=== PATIENT | male | born 1945 | race Caucasian/White ===

== ENCOUNTER 2016-06-17 18:02 | Outpatient (CLI) | payer MEDICARE ==
[2016-06-17 18:31] LABS: Hemoglobin A1c 9.6 % (4.0-6.0)
== END 2016-06-17 18:03 | disposition home or self-care (01) ==
LOC: NAV LAB 18:02
PROVIDERS: ATTEND Family Medicine
DX: E11.65 Type 2 diabetes mellitus with hyperglycemia (principal)
CPT/HCPCS: 36415; 83036

== ENCOUNTER 2017-02-13 16:36 | Outpatient (CLI) | payer MEDICARE ==
--- NOTE | 2017-02-13 17:22 | RAD ---
LUMBAR SPINE THREE VIEWS: HISTORY: Intermittent numbness. COMPARISON: None. FINDINGS: There is an enlarged L5 transverse process with anomalous articulation with the sacral spine. There is anterolisthesis of L4 over L5, approximately 4 mm. There is retrolisthesis of L3 over L4, approximately 2 mm. No acute fracture. IMPRESSION: 1. 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 2. A 4 mm L4 over L5 anterolisthesis due to facet arthropathy, as well as 2 mm L3 over L4 retrolisth esis due to degenerative disk space disease. 3. Extensive vascular calcification of the aorta. POS: [facility]
== END 2017-02-13 16:37 | disposition home or self-care (01) ==
LOC: NAV RAD 16:36
PROVIDERS: ATTEND Family Medicine
DX: R20.8 Other disturbances of skin sensation (principal); M43.16 Spondylolisthesis, lumbar region; I70.0 Atherosclerosis of aorta
CPT/HCPCS: 72100